=== PATIENT | female | born 1985 | race Two or more races ===

== ENCOUNTER 2023-01-21 15:10 | Emergency (ER) | payer BC, OTHER ==
[~2023-01-21] VITALS: Ht 170.2 cm; Wt 70.6 kg
[2023-01-21] MEDS ORDERED: HYDROcodone-ACET 10/325MG TAB PO ONE (17:00)
[2023-01-21] MEDS ORDERED: KETOROLAC TROMETH 60MG/2ML VIAL IM ONE (17:00)
[2023-01-21] MEDS ORDERED: ACE3T PO (18:22)
[2023-01-21] MEDS ORDERED: IBUP-1455 PO (18:22)
[2023-01-21 19:39] VITALS: BP 118/86; TEMP 98
[2023-01-21 19:40] VITALS: PULSE 86; RESP 18; O2SAT 100
== END 2023-01-21 19:42 | disposition home or self-care (01) ==
LOC: ER 15:10
DX: S16.1XXA Strain of muscle, fascia and tendon at neck level, initial encounter (principal); S20.219A Contusion of unspecified front wall of thorax, initial encounter; R51.9 Headache, unspecified; X58.XXXA Exposure to other specified factors, initial encounter; Y93.89 Activity, other specified; Y92.89 Other specified places as the place of occurrence of the external cause; Y99.8 Other external cause status
CPT/HCPCS: 70450; 71046; 72040; 96372; 99285; J1885